=== PATIENT | female | born 1980 | race Caucasian/White ===

== ENCOUNTER → 2020-03-16 | Outpatient (CLI) | payer OTHER ==
[2020-03-16 08:56] LABS: EOS # 0.1 (0.04-0.40); EOS % 2.1 % (1.0-5.0); HEMATOCRIT 42.1 % (37.0-47.0); HEMOGLOBIN 13.5 g/dL (12.5-16.0); LYMPH# 2.1 (1.50-4.00); MEAN CELL VOLUME 95 fl (78-100); MEAN CORPUSCULAR HEMOGLOBIN 30 pg (27-31); MEAN CORPUSCULAR HGB CONC 32 g/dL (33-37); MEAN PLATELET VOLUME 9.1 fl (7.4-10.4); MONO # 0.4 (0.20-0.80); NEU # 3.5 (1.40-6.50); PLATELET COUNT 199 K/mm3 (130-400); RED BLOOD COUNT 4.44 M/mm3 (4.10-5.30); RED CELL DISTRIBUTION WIDTH 12.4 % (11.5-14.5); WHITE BLOOD COUNT 6.1 K/mm3 (4.8-10.8)
[2020-03-16 09:11] LABS: ALBUMIN 4.4 g/dL (3.5-5.0); SODIUM 139 mmol/L (136-145)
[2020-03-16 09:12] LABS: CALCIUM 8.9 mg/dL (8.3-10.5)
[2020-03-16 09:13] LABS: GLUCOSE 97 mg/dL (65-105); TOTAL PROTEIN 7.6 g/dL (6.4-8.3)
[2020-03-16 09:14] LABS: CARBON DIOXIDE 23 mmol/L (22-29)
[2020-03-16 09:15] LABS: TOTAL BILIRUBIN 0.4 mg/dL (0.2-1.2)
[2020-03-16 09:19] LABS: AST-SGOT 17 U/L (5-34)
[2020-03-16 09:20] LABS: ALT/SGPT 23 U/L (0-55)
[2020-03-18 12:21] LABS: ANA SCREEN with REFLEX Negative (Negative)
[2020-03-20 23:59] LABS: E. CHAFFEENSIS IGG AB <1:64 titer (<1:64)
[2020-03-21 14:56] LABS: Q FEVER PHASE I IGG ANTIBODY <1:16 (<1:16); Q FEVER PHASE I IGM ANTIBODY <1:16 (<1:16)
[2020-03-23 23:46] LABS: LYME DISEASE EIA Negative (Negative)
== END ==
LOC: LAB 08:43
PROVIDERS: Physician Assistant
DX: Z76.89 Persons encountering health services in other specified circumstances (principal); B60.0 Babesiosis; M79.10 Myalgia, unspecified site; M79.641 Pain in right hand; M79.671 Pain in right foot; M79.642 Pain in left hand; M79.672 Pain in left foot; M25.50 Pain in unspecified joint